=== PATIENT | male | born 1985 | race Caucasian/White ===

== ENCOUNTER 2020-04-19 12:25 | Emergency (ER) | payer OTHER ==
[~2020-04-19] VITALS: Ht 167.6 cm; Wt 90.0 kg
[2020-04-19 12:30] VITALS: BP 141/106
--- NOTE | 2020-04-19 12:35 | NUR ---
PT THOUGHT HE WAS COMING HERE TO SEE A PSYCHIATRIST. EXPLAINED TO PT, HE WOULD SEE AN ER DOC PAUL, THEN PSYCH [facility]PART[facility], THEN BE ADMITTED IF NEEDED. PT STATED THAT'S NOT WHAT HE IS HERE FOR, JUST WANTED TO SEE PSYCHIATRY, WAS TOLD BY A PARKING ATTENDANT THAT IF HE CHECKED IN, HE WOULD BE ABLE TO SEE PSYCHIATRY QUICKER. DID NOT WANT TO CONTINUE WITH TRIAGE.
== END 2020-04-19 12:38 | disposition left against medical advice (07) ==
LOC: ED 12:27
DX: R45.1 Restlessness and agitation (principal); Z53.21 Procedure and treatment not carried out due to patient leaving prior to being seen by health care provider